=== PATIENT | female | born 1950 | race Caucasian/White ===

== ENCOUNTER 2018-01-04 12:44 | Emergency (ER) | payer MEDICARE, OTHER ==
[~2018-01-04] VITALS: Ht 162.6 cm; Wt 84.4 kg
[2018-01-04] MEDS ORDERED: KETOROLAC 30 MG/1 ML IM ONE (14:30)
[2018-01-04] MEDS ORDERED: KETOROLAC 30 MG/1 ML ONE (14:34)
[2018-01-04] MEDS ORDERED: ONDANSETRON ODT 4 MG ONE (14:47)
[2018-01-04 15:01] LABS: CULTURE INDICATED? YES; MICROSCOPIC INDICATED
[2018-01-04 15:14] LABS: BASOPHILS # (AUTO) 0.06 x10^3/uL (0-0.1); BASOPHILS % (AUTO) 0 % (0-1); EOSINOPHILS # (AUTO) 0.01 x10^3/uL (0-0.4); EOSINOPHILS % (AUTO) 0 % (1-7); LYMPHOCYTES # (AUTO) 1.12 x10^3/uL (1-3.4); LYMPHOCYTES % (AUTO) 8 % (22-44); MD NO; MEAN CORPUSCULAR HEMOGLOBIN 29.7 pg (27.0-34.8); MEAN CORPUSCULAR HGB CONC 33.5 g/dL (32.4-35.8); MEAN CORPUSCULAR VOLUME 88.6 fL (80-100); MEAN PLATELET VOLUME 8.2 fL (7.4-10.4); MONOCYTES # (AUTO) 0.28 x10^3/uL (0.2-0.8); MONOCYTES % (AUTO) 2 % (2-9); NEUTROPHILS # (AUTO) 12.26 x10^3/uL (1.8-6.8); NEUTROPHILS % (AUTO) 89 % (42-75); PLATELET COUNT 282 x10^3/uL (130-400); RED BLOOD COUNT 4.54 x10^6/uL (3.82-5.3); RED CELL DISTRIBUTION WIDTH 13.9 % (9.6-15.2)
[2018-01-04 15:24] LABS: ALANINE AMINOTRANSFERASE 22 U/L (12-78); ALBUMIN 3.8 g/dL (3.4-5.0); ANION GAP 8 mmol/L (5-15); CALCIUM 8.3 mg/dL (8.5-10.1); CHLORIDE 105 mmol/L (98-107); CREATININE 0.88 mg/dL (0.55-1.02)
[2018-01-04 15:25] LABS: ALKALINE PHOSPHATASE 85 U/L (45-117); BILIRUBIN,TOTAL 0.6 mg/dL (0.2-1.0); TOTAL PROTEIN 6.9 g/dL (6.4-8.2)
[2018-01-04] MEDS ORDERED: ONDANSETRON ODT 4 MG PO ONE (15:30)
[2018-01-04 16:26] VITALS: BP 127/71
[2018-01-04 16:35] LABS: MICROSCOPIC INDICATED
[2018-01-04] MEDS ORDERED: MORPHINE SULFATE 4 MG/ML, 1ML ONE (16:37)
[2018-01-04 16:50] LABS: CULTURE INDICATED? NO
[2018-01-04] MEDS ORDERED: morphine SULFATE 10 MG/ML, 1ML IVPush ONE (17:00)
[2018-01-04] MEDS ORDERED: OXYcodone/APAP 5/325MG TABLET ONE (17:50)
[2018-01-04] MEDS ORDERED: OXYcodone/APAP 5/325MG TABLET PO ONE (18:00)
== END 2018-01-04 18:18 | disposition home or self-care (01) ==
LOC: ED 16:32
DX: N13.2 Hydronephrosis with renal and ureteral calculous obstruction (principal); E11.9 Type 2 diabetes mellitus without complications
CPT/HCPCS: 36415; 74176; 80053; 81001; 85025; 87086; 96372; 99285; J1885; Q0162

== ENCOUNTER → 2018-02-07 | Outpatient (CLI) | payer MEDICARE, OTHER ==
[~2018-02-07] MED LIST: ESTR0.3T PO; MOEX15TA2 PO
== END | disposition home or self-care (01) ==
LOC: CFH 08:14
PROVIDERS: ATTEND Student in an Organized Health Care Education/Training Program
DX: N13.2 Hydronephrosis with renal and ureteral calculous obstruction (principal); Z90.710 Acquired absence of both cervix and uterus
CPT/HCPCS: 74176

== ENCOUNTER 2018-02-13 15:47 | Day surgery (SDC) | payer MEDICARE, OTHER ==
[~2018-02-13] VITALS: Ht 162.6 cm; Wt 80.9 kg
[2018-02-13] MEDS ORDERED: LACTATED RINGERS 1,000 ML IV SCH (16:10)
[2018-02-13 16:11] VITALS: BP 152/88
[2018-02-13] MEDS ORDERED: LIDOCAINE-MPF 1%, 2ML INFIL ONE (16:30)
[2018-02-13] MEDS ORDERED: FENTANYL PF 100 MCG/2ML ONE (17:07)
[2018-02-13] MEDS ORDERED: MIDAZOLAM 1 MG/ML, 2ML ONE (17:07)
[2018-02-13] MEDS ORDERED: DEXAMETHASONE 4 MG/ML, 1ML ONE (17:55)
[2018-02-13] MEDS ORDERED: PROPOFOL 10 MG/ML, 20ML ONE (17:55)
[2018-02-13] MEDS ORDERED: GLYCOPYRROLATE 0.2MG/1ML, 5ML ONE (17:55)
[2018-02-13] MEDS ORDERED: NEOSTIGMINE 1 MG/ML, 10ML ONE (17:55)
[2018-02-13] MEDS ORDERED: ROCURONIUM 10 MG/ML,10ML ONE (17:55)
[2018-02-13] MEDS ORDERED: CEFAZOLIN 1,000 MG ONE (17:55)
[2018-02-13] MEDS ORDERED: SUCCINYLCHOLINE 20 MG/ML, 10ML ONE (17:55)
[2018-02-13] MEDS ORDERED: ONDANSETRON 2MG/ML, 2ML ONE (17:55)
[2018-02-13] MEDS ORDERED: OPIUM/BELLADONNA SUPP.RECT 16.2-30 MG ONE (18:22)
[2018-02-13] MEDS ORDERED: SUGAMMADEX 200 MG/2 ML IVPush ONE (18:23)
[2018-02-13] MEDS ORDERED: OPIUM/BELLADONNA SUPP.RECT 16.2-30 MG PR PRN (18:30)
[2018-02-13] MEDS ORDERED: HYDROmorphone 1 MG/ML, 1ML IV PRN (19:00)
[2018-02-13] MEDS ORDERED: PROMETHAZINE 25 MG/ML, 1ML IV PRN (19:00)
[2018-02-13] MEDS ORDERED: MEPERIDINE/PF 25MG/0.5ML IVPush PRN (19:00)
[2018-02-13] MEDS ORDERED: LABETALOL 5MG/ML, 20ML IV PRN (19:00)
[2018-02-13] MEDS ORDERED: ALBUTEROL SULFATE 2.5 MG/3 ML NPPB PRN (19:00)
[2018-02-13] MEDS ORDERED: METOCLOPRAMIDE 5 MG/ML, 2ML IV PRN (19:00)
[2018-02-13] MEDS ORDERED: hydrALAzine 20 MG/ML, 1ML IV PRN (19:00)
[2018-02-13] MEDS ORDERED: KETOROLAC 30 MG/1 ML IV PRN (19:00)
[2018-02-13] MEDS ORDERED: ONDANSETRON 2MG/ML, 2ML IVPush PRN (19:00)
[2018-02-13] MEDS ORDERED: OXYcodone 5 MG/5 ML ORAL.SOL UDC PO PRN (19:00)
[2018-02-13] MEDS ORDERED: FENTANYL PF 100 MCG/2ML IV PRN (19:00)
== END 2018-02-13 20:25 | disposition home or self-care (01) ==
LOC: OR 15:47 → 4NOR 19:15 → OR 20:25
PROVIDERS: ATTEND Student in an Organized Health Care Education/Training Program
DX: N13.2 Hydronephrosis with renal and ureteral calculous obstruction (principal); I10 Essential (primary) hypertension; E11.9 Type 2 diabetes mellitus without complications; Z79.899 Other long term (current) drug therapy; Z90.710 Acquired absence of both cervix and uterus; Z98.890 Other specified postprocedural states
CPT/HCPCS: 52356; 82360; 88300; 93005; C1758; C1769; C2617; J0330; J0690; J1100; J2250; J2405; J2704; J2710; J3010; J3490

== ENCOUNTER 2020-07-30 11:02 | Emergency (ER) | payer OTHER ==
[~2020-07-30] VITALS: Ht 162.6 cm; Wt 87.5 kg
[2020-07-30] MEDS ORDERED: KETOROLAC 30 MG/1 ML IVPush ONE (11:30)
[2020-07-30] MEDS ORDERED: ONDANSETRON 2MG/ML, 2ML IVPush ONE (11:30)
[2020-07-30] MEDS ORDERED: MORPHINE SULFATE 4 MG/ML, 1ML IVPush PRN (11:30)
[2020-07-30] MEDS ORDERED: SODIUM CHLORIDE FLUSH 10ML SYR IVF ONE (11:30)
[2020-07-30 11:35] LABS: BASOPHILS % (AUTO) 0 % (0-1); EOSINOPHILS % (AUTO) 1 % (1-7); LYMPHOCYTES % (AUTO) 29 % (22-44); MD NO; MEAN CORPUSCULAR HEMOGLOBIN 28.8 pg (27.0-34.8); MEAN CORPUSCULAR HGB CONC 33.8 g/dL (32.4-35.8); MEAN PLATELET VOLUME 7.5 fL (7.4-10.4); MONOCYTES % (AUTO) 7 % (2-9); NEUTROPHILS % (AUTO) 63 % (42-75); PLATELET COUNT 400 x10^3/uL (130-400); RED BLOOD COUNT 4.82 x10^6/uL (3.82-5.3); RED CELL DISTRIBUTION WIDTH 12.9 % (9.6-15.2)
[2020-07-30] MEDS ORDERED: KETOROLAC 30 MG/1 ML ONE (11:35)
[2020-07-30] MEDS ORDERED: ONDANSETRON 2MG/ML, 2ML ONE (11:35)
--- NOTE | 2020-07-30 11:44 | NUR ---
PT AMBULATED TO RESTROOM WITH STEADY GAIT TO PROVIDE URINE SAMPLE. UA COLLECTED AND SENT TO LAB. LABS DRAWN AND COLLECTED BY ESTIMATOR. PIV PLACED ON SECOND ATTEMPT. MEDS ADMIN PER MAR, PT REFUSED MORPHINE AT THIS TIME. PT AT CT.
[2020-07-30 11:45] LABS: ALANINE AMINOTRANSFERASE 28 U/L (12-78); ALBUMIN 3.7 g/dL (3.4-5.0); ANION GAP 8 mmol/L (5-15); CALCIUM 8.5 mg/dL (8.5-10.1); CHLORIDE 110 mmol/L (98-107); CREATININE 0.78 mg/dL (0.55-1.02)
[2020-07-30 11:47] LABS: ALKALINE PHOSPHATASE 94 U/L (45-117); TOTAL PROTEIN 7.3 g/dL (6.4-8.2)
[2020-07-30 11:50] LABS: MICROSCOPIC INDICATED
--- NOTE | 2020-07-30 12:05 | NUR ---
PT STATES PAIN IS BETTER AFTER MEDS.
--- NOTE | 2020-07-30 12:16 | NUR ---
MD AT BEDSIDE TO UPDATE PT ON POC.
--- NOTE | 2020-07-30 12:19 | NUR ---
TO CONSULT UROLOGY
[2020-07-30] MEDS ORDERED: MORPHINE SULFATE 4 MG/ML, 1ML ONE (12:28)
[2020-07-30 12:31] VITALS: BP 134/72
--- NOTE | 2020-07-30 12:32 | NUR ---
PAIN MEDS ADMIN PER AUG.
--- NOTE | 2020-07-30 12:59 | NUR ---
Patient given discharge instructions and they have confirmed that they understand the instructions. Patient ambulatory with steady gait.
== END 2020-07-30 13:00 | disposition home or self-care (01) ==
LOC: ED 11:39
DX: N13.2 Hydronephrosis with renal and ureteral calculous obstruction (principal); R11.2 Nausea with vomiting, unspecified; I10 Essential (primary) hypertension; Z88.2 Allergy status to sulfonamides; Z91.040 Latex allergy status
CPT/HCPCS: 36415; 74176; 80053; 81001; 85025; 87086; 96374; 96375; 99284; J1885; J2270; J2405